=== PATIENT | male | born 1995 | race Caucasian/White ===

== ENCOUNTER 2017-05-11 04:42 | Emergency (ER) | payer SELFPAY ==
[2017-05-11] MEDS ORDERED: NORMAL SALINE 1000 ML 1,000 ML IV ONE ×3 (05:03→06:15)
[2017-05-11] MEDS ORDERED: ACETAMINOPHEN 325 MG TABLET ONE (05:18)
[2017-05-11] MEDS ORDERED: ACETAMINOPHEN 325 MG TABLET PO ONE (05:21)
[2017-05-11 05:39] LABS: VENOUS BLOOD BASE EXCESS 3.9 mmol/L; VENOUS BLOOD HCO3 29.7 mmol/L (20-32); VENOUS BLOOD PCO2 49.1 mmHg (35-63); VENOUS BLOOD PH 7.4 (7.30-7.42)
[2017-05-11 05:40] LABS: PROTHROMBIN TIME 14.2 SEC (11.4-15.4)
[2017-05-11 05:44] LABS: ABSOLUTE EOSINOPHILS # (AUTO) 0.1 10^3/uL (0.0-0.6); ABSOLUTE LYMPHOCYTES (AUTO) 1.4 10^3/uL (0.5-4.7); ABSOLUTE MONOCYTES (AUTO) 1.5 10^3/uL (0.1-1.4); ABSOLUTE NEUT (AUTO) 9.7 10^3/uL (1.7-8.2); BASOPHILS % (AUTO) 0.3 % (0-2); HEMATOCRIT 45.4 % (37.9-51.0); HEMOGLOBIN 15.2 g/dL (13.5-17.0); HGB HCT DIFFERENCE 0.2; MEAN CORPUSCULAR HEMOGLOBIN 29.3 pg (27.0-33.4); MEAN CORPUSCULAR HGB CONC 33.6 g/dL (32.0-36.0); MEAN CORPUSCULAR VOLUME 87 fl (80-97); RED BLOOD COUNT 5.19 10^6/uL (4.35-5.55); RED CELL DISTRIBUTION WIDTH 14.6 % (11.5-14.0); SEGMENTED NEUTROPHILS % (AUTO) 75.7 % (42-78); WHITE BLOOD COUNT 12.9 10^3/uL (4.0-10.5)
--- NOTE | 2017-05-11 05:47 | RADIOLOGY REPORT (SQ) ---
EXAM DESCRIPTION: CHEST PA/LAT COMPLETED DATE/TIME: 05/11/2017 5:38 am REASON FOR STUDY: FEVER COMPARISON: None. EXAM PARAMETERS: NUMBER OF VIEWS: two views TECHNIQUE: Digital Frontal and Lateral radiographic views of the chest acquired. RADIATION DOSE: NA LIMITATIONS: none FINDINGS: LUNGS AND PLEURA: No opacities, masses or pneumothorax. No pleural effusion. MEDIASTINUM AND HILAR STRUCTURES: No masses or contour abnormalities. HEART AND VASCULAR STRUCTURES: Heart normal size. No evidence for failure. BONES: No acute findings. HARDWARE: None in the chest. OTHER: No other significant finding. IMPRESSION: NO SIGNIFICANT RADIOGRAPHIC FINDING IN THE CHEST. TECHNICAL DOCUMENTATION: JOB ID: [id number] [employer]- All Rights Reserved
[2017-05-11 05:55] LABS: ALANINE AMINOTRANSFERASE 40 U/L (21-72); ALKALINE PHOSPHATASE 128 U/L (38-126); ANION GAP 13 (5-19); ASPARTATE AMINO TRANSFERASE 27 U/L (17-59); BILIRUBIN,DIRECT 0.3 mg/dL (0.0-0.4); BILIRUBIN,TOTAL 0.8 mg/dL (0.2-1.3); BLOOD UREA NITROGEN 14 mg/dL (7-20); CALCIUM 9.7 mg/dL (8.4-10.2); CARBON DIOXIDE 28 mmol/L (22-30); CHLORIDE 98 mmol/L (98-107); CREATININE RESULT 0.86 mg/dL (0.52-1.25); GLUCOSE 101 mg/dL (75-110); POTASSIUM 3.6 mmol/L (3.6-5.0); SODIUM 139.4 mmol/L (137-145); TOTAL PROTEIN 9.1 g/dL (6.3-8.2)
[2017-05-11 06:07] LABS: APPEARANCE,URINE CLEAR; BILIRUBIN,URINE NEGATIVE (NEGATIVE); GLUCOSE, URINE NEGATIVE (NEGATIVE); KETONES,URINE NEGATIVE (NEGATIVE); LEUKOCYTE ESTERASE,URINE NEGATIVE (NEGATIVE); NITRITE,URINE NEGATIVE (NEGATIVE); PROTEIN,URINE NEGATIVE (NEGATIVE); URINE SPECIFIC GRAVITY 1.012; UROBILINOGEN,URINE NEGATIVE mg/dL (<2.0)
[2017-05-11] MEDS ORDERED: LORAZEPAM INJ 2 MG/1 ML VIAL IV ONE (06:29)
[2017-05-11 06:45] LABS: URINE BARBITURATES SCREEN NEGATIVE; URINE METHADONE SCREEN NEGATIVE; URINE OPIATES LOW NEGATIVE; URINE PHENCYCLIDINE SCREEN NEGATIVE
[2017-05-11 06:59] LABS: CREATINE KINASE 106 U/L (55-170); LIPASE 51.6 U/L (23-300)
[2017-05-11 07:04] LABS: ALCOHOL < 10 mg/dL (NONE DETECTED)
[2017-05-11 07:12] LABS: CREATINE KINASE MB 0.72 ng/mL (<4.55)
[2017-05-11 07:15] LABS: TROPONIN I < 0.012 ng/mL
[2017-05-11 07:28] LABS: THYROID STIMULATING HORMONE 5.78 uIU/mL (0.47-4.68)
--- NOTE | 2017-05-11 08:34 | ER Document Report ---
ED General - General Chief Complaint: Headache Stated Complaint: BODY ACHES Time Seen by Provider: 05/11/17 06:15 - HPI Patient complains to provider of: Fever Notes: Patient coming in for evaluation of diffuse myalgias and fever. States symptoms ongoing for last few days. Patient denies any recent travel denies any recent sick contacts. Patient also states he does have a headache. No other neurologic complaints no dizziness no lightheadedness no numbness no tingling no abdominal pain chest pain no nausea vomiting diarrhea. No recent antibiotics. - Related Data Allergies/Adverse Reactions: No Known Allergies Allergy (Verified 05/11/17 05:32) Past Medical History - Social History Smoking Status: Unknown if Ever Smoked Family History: Reviewed & Not Pertinent Patient has suicidal ideation: No Patient has homicidal ideation: No Renal/ Medical History: Denies: Hx Peritoneal Dialysis Surgical Hx: Negative Review of Systems - Review of Systems Constitutional: Fever EENT: No symptoms reported Cardiovascular: No symptoms reported Respiratory: No symptoms reported Gastrointestinal: No symptoms reported Genitourinary: No symptoms reported Male Genitourinary: No symptoms reported Musculoskeletal: No symptoms reported Skin: No symptoms reported Hematologic/Lymphatic: No symptoms reported Neurological/Psychological: No symptoms reported -: Yes All other systems reviewed and negative Physical Exam - Vital signs Vitals: Temp Pulse Resp BP Pulse Ox 99.6 F 131 H 18 152/89 H 99 05/11/17 04:46 05/11/17 04:46 05/11/17 04:46 05/11/17 04:46 05/11/17 04:46 Interpretation: Tachycardic - General General appearance: Appears well, Alert - HEENT Head: Normocephalic, Atraumatic Eyes: Normal Pupils: PERRL - Respiratory Respiratory status: No respiratory distress Chest status: Nontender Breath sounds: Normal Chest palpation: Normal - Cardiovascular Rhythm: Tachycardia Heart sounds: Normal auscultation Murmur: No - Abdominal Inspection: Normal Distension: No distension Bowel sounds: Normal Tenderness: Nontender Organomegaly: No organomegaly - Back Back: Normal, Nontender - Extremities General upper extremity: Normal inspection, Nontender, Normal color, Normal ROM , Normal temperature General lower extremity: Normal inspection, Nontender, Normal color, Normal ROM , Normal temperature, Normal weight bearing. No: Loree's sign - Neurological Neuro grossly intact: Yes Cognition: Normal Orientation: AAOx4 [place] Coma Scale Eye Opening: Spontaneous [place] Coma Scale Verbal: Oriented [place] Coma Scale Motor: Obeys Commands [place] Coma Scale Total: 15 Speech: Normal Motor strength normal: LUE, RUE, LLE, RLE Sensory: Normal - Psychological Associated symptoms: Normal affect, Normal mood - Skin Skin Temperature: Warm Skin Moisture: Dry Skin Color: Normal Course - Re-evaluation Re-evalutation: 05/11/17 14:14 Lab work is nonspecific slight elevation TSH patient's heart rate improved after a dose of Ativan and IV fluids. Upon entering room patient's heart rate would increase from 90 to-120. More likely this is related to the patient's anxiety. No signs of sepsis or severe infection patient will be discharged on follow-up primary care. Vistaril was given for possible anxiety. - Vital Signs Vital signs: Temp Pulse Resp BP Pulse Ox 97.9 F 131 H 17 134/67 H 99 05/11/17 08:12 05/11/17 04:46 05/11/17 08:31 05/11/17 08:31 05/11/17 08:31 - Laboratory Result Diagrams: 05/11/17 05:12 05/11/17 05:12 Laboratory results interpreted by me: 05/11/17 05/11/17 05/11/17 05:12 05:12 05:12 WBC 12.9 H RDW 14.6 H Lymphocytes % 11.0 L Absolute Neutrophils 9.7 H Absolute Monocytes 1.5 H Alkaline Phosphatase 128 H Total Protein 9.1 H TSH 5.78 H Discharge - Discharge Clinical Impression: Dehydration Fever Qualifiers: Fever type: unspecified Qualified Code(s): R50.9 - Fever, unspecified Condition: Good Disposition: HOME, SELF-CARE Instructions: Sinus Tachycardia ([facility]), Fever ([facility]), Anxiety ([facility]), Dehydration ([facility]) Additional Instructions: At this time your workup does not show any significant signs of infection your heart rate has improved with IV hydration. We recommend that she continue to drink plenty of fluids to stay hydrated. Possibility that she may have some underlying anxiety. He may take the Vistaril prescribed at nighttime to possibly help out with any underlying anxiety. Otherwise highly recommend she drink plenty of water or Gatorade to stay hydrated. Tylenol Motrin for fever and pain control. Return to the ER symptoms worsen. He may follow-up the clinic provided you discharge papers. Prescriptions: Hydroxyzine Pamoate [Vistaril 25 mg Capsule] 25 mg PO QHS #20 capsule
[2017-05-11 08:55] VITALS: BP 134/67
--- NOTE | 2017-05-11 12:03 | EKG REPORT ---
SEVERITY:- ABNORMAL ECG - SINUS TACHYCARDIA PROBABLE LEFT ATRIAL ABNORMALITY PROBABLE LEFT VENTRICULAR HYPERTROPHY ST ELEV, PROBABLE NORMAL EARLY REPOL PATTERN : Confirmed by: Benita Blackburn MD 11-May-2017 12:02:37
== END 2017-05-11 08:55 | disposition home or self-care (01) ==
LOC: ER 04:42
DX: E86.0 Dehydration (principal); R50.9 Fever, unspecified; R51 Headache; R52 Pain, unspecified; M79.1 Myalgia
CPT/HCPCS: 93005; 99284; 96374; 36415; 87040; 87086; 84439; 82553; 82962; 80307 ×2; 82550; 83690; 84443; 85025; 85610; 80053; 81001; 84484; 85379; 82803; 83605; 87804; 71020; 93010; J2060; J7030

== ENCOUNTER 2017-05-13 06:39 | Emergency (ER) | payer SELFPAY ==
--- NOTE | 2017-05-13 07:22 | ER Document Report ---
ED Respiratory Problem - General Chief Complaint: Cough Stated Complaint: COUGHING UP BLOOD Time Seen by Provider: 05/13/17 07:21 Mode of Arrival: Ambulatory Information source: Patient Notes: Patient is a 22-year-old male who presents to the ER today for coughing up blood 1 day. Patient states that he started feeling ill a few days ago, came to the emergency department, everything was normal at that time, but his cough has worsened. He denies any history of asthma or lung diseases, HIV, tuberculosis. He admits to some fever and chills but has not taken his temperature. He has never coughed up blood before. TRAVEL OUTSIDE OF THE [place] IN LAST 30 DAYS: No - Related Data Allergies/Adverse Reactions: No Known Allergies Allergy (Verified 05/13/17 07:30) Past Medical History - General Information source: Patient - Social History Smoking Status: Never Smoker Family History: Reviewed & Not Pertinent Patient has suicidal ideation: No Patient has homicidal ideation: No Renal/ Medical History: Denies: Hx Peritoneal Dialysis Review of Systems - Review of Systems Constitutional: See HPI EENT: No symptoms reported Cardiovascular: No symptoms reported Respiratory: See HPI Gastrointestinal: No symptoms reported Genitourinary: No symptoms reported Male Genitourinary: No symptoms reported Musculoskeletal: No symptoms reported Skin: No symptoms reported Hematologic/Lymphatic: No symptoms reported Neurological/Psychological: No symptoms reported Physical Exam - Vital signs Vitals: Temp Pulse Resp BP Pulse Ox 98.3 F 114 H 18 152/81 H 100 05/13/17 06:44 05/13/17 06:44 05/13/17 06:44 05/13/17 06:44 05/13/17 06:44 Course - Re-evaluation Re-evalutation: 05/13/17 10:32 Is 11.2, HIV is negative, will treat patient for pneumonia with antibiotics and steroid medication, will give him albuterol inhaler from the emergency department. I have had a lengthy discussion with him advising him that I do believe he should stay in the hospital as he is tachycardic and gets more tachycardic into the 115s whenever he ambulates, however he does not get tachypneic or hypoxic at all, staying around 96% on room air to 100% on room air consistently. I have seen him cough up bright red blood here, approximately 1 ounce. I did highly advise him to stay in the hospital, however patient has a job interview that he states he must get to because he "really needs this job." I did advise that he can come back at any time but did not promise him that he will absolutely be admitted if he leaves now and comes back to be admitted after the job interview. I did advise him that it depends on what his vital signs look like and how much blood he is coughing up, but at this time he is still deciding that he wants to leave to go to this job interview. It sounds like he will be back later on this afternoon after the job interview and wants to be admitted for this. He does not have insurance and states he does not have the money to follow-up outpatient. I have sent him home with the albuterol inhaler and treating him for pneumonia with generic medication. - Vital Signs Vital signs: Temp Pulse Resp BP Pulse Ox 98.3 F 114 H 18 152/81 H 100 05/13/17 06:44 05/13/17 06:44 05/13/17 06:44 05/13/17 06:44 05/13/17 06:44 - Laboratory Result Diagrams: 05/13/17 08:45 05/13/17 08:45 Laboratory results interpreted by me: 05/13/17 08:45 WBC 11.2 H RBC 4.18 L Hgb 12.6 L D Hct 37.2 L RDW 14.1 H Seg Neutrophils % 81.6 H Lymphocytes % 8.6 L Absolute Neutrophils 9.1 H Discharge - Discharge Clinical Impression: Hemoptysis Pneumonia Qualifiers: Pneumonia type: due to unspecified organism Laterality: bilateral Lung location : unspecified part of lung Qualified Code(s): J18.9 - Pneumonia, unspecified organism Condition: Stable Disposition: HOME, SELF-CARE Additional Instructions: Return immediately for any new or worsening symptoms. Coughing up 1 cup (8oz) of blood in 24 hours is too much and you would need to return to the ER immediately. Follow up with Dr. Kurtz, call today to make followup appointment. Prescriptions: Benzonatate [Tessalon Perle 100 mg Capsule] 100 mg PO Q8HP PRN #14 cap PRN Reason: Doxycycline Hyclate 100 mg PO BID #20 capsule Prednisone [Deltasone 20 mg Tablet] 3 tab PO DAILY 8 Days
--- NOTE | 2017-05-13 07:54 | RADIOLOGY REPORT (SQ) ---
EXAM DESCRIPTION: CHEST PA/LAT COMPLETED DATE/TIME: 05/13/2017 7:39 am REASON FOR STUDY: cough COMPARISON: 05/11/2017. EXAM PARAMETERS: NUMBER OF VIEWS: two views TECHNIQUE: Digital Frontal and Lateral radiographic views of the chest acquired. RADIATION DOSE: NA LIMITATIONS: none FINDINGS: LUNGS AND PLEURA: Diffuse bilateral infiltrates. No pleural effusion. No pneumothorax. MEDIASTINUM AND HILAR STRUCTURES: No masses or contour abnormalities. HEART AND VASCULAR STRUCTURES: Heart normal size. No evidence for failure. BONES: No acute findings. HARDWARE: None in the chest. OTHER: No other significant finding. IMPRESSION: DIFFUSE BILATERAL INFILTRATES. TECHNICAL DOCUMENTATION: JOB ID: [id number] [employer]- All Rights Reserved
[2017-05-13] MEDS ORDERED: GUAIFENESIN/D-METHORPHAN (200-20 MG) SYRUP 10 ML PO ONE (08:20)
[2017-05-13] MEDS ORDERED: DAPSONE 25 MG TABLET PO ONE (08:27)
[2017-05-13] MEDS ORDERED: SULFAMETHOXAZOLE/TRIMETHOPRIM 800-160 MG TABLET PO ONE (08:27)
[2017-05-13 09:03] LABS: ABSOLUTE EOSINOPHILS # (AUTO) 0.1 10^3/uL (0.0-0.6); ABSOLUTE NEUT (AUTO) 9.1 10^3/uL (1.7-8.2); BASOPHILS % (AUTO) 0.2 % (0-2); EOSINOPHILS % (AUTO) 0.7 % (0-6); HEMATOCRIT 37.2 % (37.9-51.0); HGB HCT DIFFERENCE 0.6; LYMPHOCYTES % (AUTO) 8.6 % (13-45); MEAN CORPUSCULAR HEMOGLOBIN 30.2 pg (27.0-33.4); MEAN CORPUSCULAR VOLUME 89 fl (80-97); MONOCYTES % (AUTO) 8.9 % (3-13); RED BLOOD COUNT 4.18 10^6/uL (4.35-5.55); RED CELL DISTRIBUTION WIDTH 14.1 % (11.5-14.0); SEGMENTED NEUTROPHILS % (AUTO) 81.6 % (42-78); WHITE BLOOD COUNT 11.2 10^3/uL (4.0-10.5)
[2017-05-13 09:16] LABS: ALANINE AMINOTRANSFERASE 28 U/L (21-72); ALBUMIN 4.4 g/dL (3.5-5.0); ALKALINE PHOSPHATASE 111 U/L (38-126); ANION GAP 13 (5-19); ASPARTATE AMINO TRANSFERASE 21 U/L (17-59); BILIRUBIN,DIRECT 0.4 mg/dL (0.0-0.4); BILIRUBIN,TOTAL 0.6 mg/dL (0.2-1.3); BLOOD UREA NITROGEN 12 mg/dL (7-20); CALCIUM 9.1 mg/dL (8.4-10.2); CARBON DIOXIDE 25 mmol/L (22-30); CHLORIDE 103 mmol/L (98-107); CREATININE RESULT 0.79 mg/dL (0.52-1.25); GLUCOSE 96 mg/dL (75-110); POTASSIUM 3.8 mmol/L (3.6-5.0); SODIUM 141.1 mmol/L (137-145); TOTAL PROTEIN 7.7 g/dL (6.3-8.2)
[2017-05-13 09:29] LABS: HEMOGLOBIN 12.6 g/dL (13.5-17.0)
--- NOTE | 2017-05-13 09:47 | RADIOLOGY REPORT (SQ) ---
EXAM DESCRIPTION: CTA CHEST COMPLETED DATE/TIME: 05/13/2017 9:27 am REASON FOR STUDY: diffuse infiltrated, hemoptysis COMPARISON: Chest x-ray dated 05/13/2017 TECHNIQUE: CT scan of the chest performed using helical scanning technique with dynamic intravenous contrast injection. Images reviewed with lung, soft tissue and bone windows. Reconstructed coronal and sagittal MPR images reviewed. Additional 3 dimensional post-processing performed to develop Maximal Intensity Projection images (AR P). All images stored on PACS. All CT scanners at this facility use dose modulation, iterative reconstruction, and/or weight based d osing when appropriate to reduce radiation dose to as low as reasonably achievable (ALARA). [facility]: Dose Right [facility]: CareDose [facility]: Dose Right [facility]: Teradose 4D [facility]: [place] CONTRAST TYPE AND DOSE: contrast/concentration: Isovue 370.00 mg/ml; Total Contrast Delivered: 70.0 ml; Total Saline Delivered: 80.0 ml RENAL FUNCTION: None required. The patient is less than 50 years old. RADIATION DOSE: Up-to-date CT equipment and radiation dose reduction techniques were employed. CTDIv ol: 15.9 - 16.5 mGy. DLP: 707 mGy-cm. . LIMITATIONS: None. FINDINGS: LUNGS AND PLEURA: Diffuse bilateral patchy airspace densities are identified which are mos t confluent in the perihilar regions. No pleural effusions are identified. No pneumothorax is seen AORTA AND GREAT VESSELS: No aneurysm or dissection. HEART: No pericardial effusion. PULMONARY ARTERIES: No emboli visualized in the main pulmonary arteries or the segmental branches. HILAR AND MEDIASTINAL STRUCTURES: No identified masses or abnormal nodes. HARDWARE: None in the chest. UPPER ABDOMEN: No significant findings. Limited exam. THYROID AND OTHER SOFT TISSUES: No masses. No adenopathy. BONES: No acute or significant finding. 3D MIPS: Confirm above findings. OTHER: No other significant finding. IMPRESSION: No evidence for pulmonary embolic disease. Diffuse bilateral patchy airspace densities as noted above most consistent with a pneumonic infiltrate although the possibility of a pulmonary he morrhage or pulmonary edema cannot be excluded. No pleural effusions are identified. Other findings as noted above TECHNICAL DOCUMENTATION: JOB ID: [id number] Quality ID # [id number]: Final reports with documentation of one or more dose reduction techniques (e.g., Au tomated exposure control, adjustment of the mA and/or kV according to patient size, use of iterative reconstruction technique) 2010 [employer]- All Rights Reserved
[2017-05-13] MEDS ORDERED: IPRATROPIUM/ALBUTEROL 0.5-2.5 MG/3 ML AMPUL NEB ONE (09:53)
[2017-05-13 09:57] LABS: ADD HIVPANEL? NO; HIV (1 AND 2) ANTIBODY NEGATIVE (NEGATIVE)
[2017-05-13] MEDS ORDERED: ALBUTEROL SULFATE HFA (90 MCG/PUFF) 8 GM MDI (1 MDI/ER DISP) IH ONE (10:37)
[2017-05-13] MEDS ORDERED: PREDNISONE 20 MG TABLET PO ONE (10:37)
[2017-05-13 11:08] VITALS: BP 151/87
== END 2017-05-13 11:00 | disposition home or self-care (01) ==
LOC: ER 06:39
DX: R04.2 Hemoptysis (principal); J18.9 Pneumonia, unspecified organism
CPT/HCPCS: 94640; 99284; 36415; 87040; 87070; 87205; 85025; 80053; 86701; 83880; 71020; 71275; J3490 ×3; J7512; J7620

== ENCOUNTER 2017-05-15 10:58 | Inpatient (IN) | payer SELFPAY ==
--- NOTE | 2017-05-15 11:51 | ER Document Report ---
ED Medical Screen (RME) - General Chief Complaint: Breathing Difficulty Stated Complaint: DIFFICULTY BREATHING, COUGH Time Seen by Provider: 05/15/17 11:45 Mode of Arrival: Ambulatory Information source: Patient Notes: This is a 22-year-old man with a recent diagnosis of pneumonia presents to the emergency room with worsening hemoptysis and worsening shortness of breath. Patient was placed on steroids, doxycycline, and an inhaler. He did have a CTA recently which showed no evidence of pulmonary emboli and a diffuse pneumonic process. TRAVEL OUTSIDE OF THE [place] IN LAST 30 DAYS: No - Related Data Allergies/Adverse Reactions: No Known Allergies Allergy (Verified 05/13/17 07:30) Past Medical History - Social History Chew tobacco use (# tins/day): No Frequency of alcohol use: None Drug Abuse: None Renal/ Medical History: Denies: Hx Peritoneal Dialysis Psychiatric Medical History: Reports: Hx Depression - anxiety Physical Exam - Vital signs Vitals: Temp Pulse Resp BP Pulse Ox 98.8 F 99 16 147/84 H 96 05/15/17 11:03 05/15/17 11:03 05/15/17 11:03 05/15/17 11:03 05/15/17 11:03 Course - Vital Signs Vital signs: Temp Pulse Resp BP Pulse Ox 98.8 F 99 18 147/84 H 96 05/15/17 11:03 05/15/17 11:03 05/15/17 11:38 05/15/17 11:03 05/15/17 11:03
[2017-05-15] MEDS ORDERED: IPRATROPIUM/ALBUTEROL 0.5-2.5 MG/3 ML AMPUL NEB ONE (11:52)
--- NOTE | 2017-05-15 12:07 | RADIOLOGY REPORT (SQ) ---
EXAM DESCRIPTION: CHEST PA/LAT COMPLETED DATE/TIME: 05/15/2017 11:57 am REASON FOR STUDY: worsening sob COMPARISON: 05/13/2017. EXAM PARAMETERS: NUMBER OF VIEWS: two views TECHNIQUE: Digital Frontal and Lateral radiographic views of the chest acquired. RADIATION DOSE: NA LIMITATIONS: none FINDINGS: LUNGS AND PLEURA: Slight worsening multifocal airspace disease. Pleural spaces clear. MEDIASTINUM AND HILAR STRUCTURES: No masses or contour abnormalities. HEART AND VASCULAR STRUCTURES: Heart normal size. No evidence for failure. BONES: No acute findings. HARDWARE: None in the chest. OTHER: No other significant finding. IMPRESSION: SLIGHT WORSENING MULTIFOCAL AIRSPACE DISEASE. TECHNICAL DOCUMENTATION: JOB ID: [id number] [employer]- All Rights Reserved
[2017-05-15 12:13] LABS: ABSOLUTE LYMPHOCYTES (AUTO) 1.1 10^3/uL (0.5-4.7); ABSOLUTE MONOCYTES (AUTO) 0.5 10^3/uL (0.1-1.4); ABSOLUTE NEUT (AUTO) 9.5 10^3/uL (1.7-8.2); BASOPHILS % (AUTO) 0.1 % (0-2); EOSINOPHILS % (AUTO) 0.1 % (0-6); HEMATOCRIT 34.3 % (37.9-51.0); HEMOGLOBIN 11.5 g/dL (13.5-17.0); HGB HCT DIFFERENCE 0.2; LYMPHOCYTES % (AUTO) 9.8 % (13-45); MEAN CORPUSCULAR HEMOGLOBIN 29.7 pg (27.0-33.4); MEAN CORPUSCULAR HGB CONC 33.6 g/dL (32.0-36.0); MEAN CORPUSCULAR VOLUME 88 fl (80-97); MONOCYTES % (AUTO) 4.9 % (3-13); RED BLOOD COUNT 3.88 10^6/uL (4.35-5.55); RED CELL DISTRIBUTION WIDTH 13.5 % (11.5-14.0); SEGMENTED NEUTROPHILS % (AUTO) 85.1 % (42-78); WHITE BLOOD COUNT 11.2 10^3/uL (4.0-10.5)
--- NOTE | 2017-05-15 12:22 | ER Document Report ---
ED Respiratory Problem - General Mode of Arrival: Ambulatory Information source: Patient TRAVEL OUTSIDE OF THE [place] IN LAST 30 DAYS: No - HPI Patient complains to provider of: Short of breath Associated symptoms: Other - see above <OMAIRA GIVENS - Last Filed: 05/15/17 14:15> <PABLO HERNANDEZ - Last Filed: 05/15/17 14:24> - General Chief Complaint: Breathing Difficulty Stated Complaint: DIFFICULTY BREATHING, COUGH Time Seen by Provider: 05/15/17 11:45 Notes: Patient is a 22 year old male who presents to the ED with complaints of worsening difficulty breathing, cough and hemoptysis. Patient was seen in the ED on 05/13/17 and diagnosed with pneumonia and was placed on steroids, doxycycline and an inhaler. They also did HIV and Influenza testing at that time and both were negative. Admission at that time was strongly recommended but patient declined as he had a job interview to attend that he could not miss. PAtient was also here on 05/11/17 for generalized body aches, fever and headache and was found to be dehydrated. Patient is unsure if he has been running a fever but he has had chills. (OMAIRA GIVENS) - Related Data Allergies/Adverse Reactions: No Known Allergies Allergy (Verified 05/13/17 07:30) Past Medical History - General Information source: Patient - Social History Smoking Status: Never Smoker Chew tobacco use (# tins/day): No Frequency of alcohol use: None Drug Abuse: None Family History: Reviewed & Not Pertinent Patient has suicidal ideation: No Patient has homicidal ideation: No Renal/ Medical History: Denies: Hx Peritoneal Dialysis Psychiatric Medical History: Reports: Hx Depression - anxiety <OMAIRA GIVENS - Last Filed: 05/15/17 14:15> Review of Systems - Review of Systems Constitutional: See HPI, Chills EENT: No symptoms reported Cardiovascular: No symptoms reported Respiratory: See HPI, Cough, Hurts to breathe, Hemoptysis, Short of breath Gastrointestinal: No symptoms reported Genitourinary: No symptoms reported Male Genitourinary: No symptoms reported Musculoskeletal: No symptoms reported Skin: No symptoms reported Hematologic/Lymphatic: No symptoms reported Neurological/Psychological: No symptoms reported <OMAIRA GIVENS - Last Filed: 05/15/17 14:15> Physical Exam - General General appearance: Alert - HEENT Head: Normocephalic, Atraumatic Eyes: Normal Extraocular movements intact: Yes Pupils: PERRL - Respiratory Respiratory status: No respiratory distress Breath sounds: Rhonchi. No: Wheezing - Cardiovascular Rhythm: Tachycardia Heart sounds: Normal auscultation Murmur: No - Abdominal Inspection: Normal Distension: No distension Tenderness: Nontender - Back Back: Normal - Extremities General upper extremity: Normal inspection, Normal ROM General lower extremity: Normal inspection, Normal ROM - Neurological Neuro grossly intact: Yes - Psychological Associated symptoms: Normal affect, Normal mood - Skin Skin Temperature: Warm Skin Moisture: Diaphoretic Skin Color: Normal <OMAIRA GIVENS - Last Filed: 05/15/17 14:15> Course - Laboratory Result Diagrams: 05/15/17 11:55 05/15/17 11:55 - Consults Dr. Lamb Time consulted: 14:12 Dr. Collins Time consulted: 14:05 <OMAIRA GIVENS - Last Filed: 05/15/17 14:15> - Laboratory Result Diagrams: 05/15/17 11:55 05/15/17 11:55 <PABLO HERNANDEZ - Last Filed: 05/15/17 14:24> - Vital Signs Vital signs: Temp Pulse Resp BP Pulse Ox 98.8 F 99 18 147/84 H 96 05/15/17 11:03 05/15/17 11:03 05/15/17 11:38 05/15/17 11:03 05/15/17 11:03 - Laboratory Laboratory results interpreted by me: 05/15/17 11:55 WBC 11.2 H RBC 3.88 L Hgb 11.5 L Hct 34.3 L Seg Neutrophils % 85.1 H Lymphocytes % 9.8 L Absolute Neutrophils 9.5 H - Consults Dr. Lamb Reason for consultation: 05/15/17 14:12 Discussed patient. Patient is accepted for admission. (OMAIRA GIVENS) Dr. Collins Reason for consultation: 05/15/17 14:05 Discussed patient. He recommended to consult with Dr. Lamb. (OMAIRA GIVENS) Discharge <OMAIRA GIVENS - Last Filed: 05/15/17 14:15> - Discharge Admitting Provider: Hospitalist Unit Admitted: Telemetry <PABLO HERNANDEZ - Last Filed: 05/15/17 14:24> - Discharge Clinical Impression: Bilateral pulmonary infiltrates on chest x-ray, Hemoptysis, Acute posthemorrhagic anemia Condition: Stable Disposition: ADMITTED INPATIENT Scribe Attestation: 05/15/17 14:24 I personally performed the services described in the documentation, reviewed and edited the documentation which was dictated to the scribe in my presence, and it accurately records my words and actions. (PABLO HERNANDEZ) Scribe Documentation - Scribe Written by Felicia:: felicia Sanchez, 05/15/2017, 1227 acting as scribe for :: Vivian <OMAIRA GIVENS - Last Filed: 05/15/17 14:15>
[2017-05-15 12:23] LABS: PROTHROMBIN TIME 13.8 SEC (11.4-15.4)
[2017-05-15] MEDS ORDERED: NORMAL SALINE 1000 ML 1,000 ML IV ONE (12:23)
[2017-05-15 12:33] LABS: ALANINE AMINOTRANSFERASE 45 U/L (21-72); ALBUMIN 4.5 g/dL (3.5-5.0); ALKALINE PHOSPHATASE 101 U/L (38-126); ANION GAP 13 (5-19); ASPARTATE AMINO TRANSFERASE 33 U/L (17-59); BILIRUBIN,DIRECT 0.4 mg/dL (0.0-0.4); BILIRUBIN,TOTAL 0.9 mg/dL (0.2-1.3); BLOOD UREA NITROGEN 13 mg/dL (7-20); CALCIUM 9.4 mg/dL (8.4-10.2); CARBON DIOXIDE 24 mmol/L (22-30); CHLORIDE 102 mmol/L (98-107); CREATININE RESULT 0.74 mg/dL (0.52-1.25); GLUCOSE 99 mg/dL (75-110); POTASSIUM 4.4 mmol/L (3.6-5.0); SODIUM 139.3 mmol/L (137-145); TOTAL PROTEIN 7.9 g/dL (6.3-8.2)
[2017-05-15 14:54] LABS: APPEARANCE,URINE SLIGHTLY-CLOUDY; BILIRUBIN,URINE NEGATIVE (NEGATIVE); GLUCOSE, URINE NEGATIVE (NEGATIVE); KETONES,URINE NEGATIVE (NEGATIVE); LEUKOCYTE ESTERASE,URINE NEGATIVE (NEGATIVE); NITRITE,URINE NEGATIVE (NEGATIVE); PROTEIN,URINE NEGATIVE (NEGATIVE); UROBILINOGEN,URINE NEGATIVE mg/dL (<2.0)
[2017-05-15] MEDS ORDERED: IPRATROPIUM/ALBUTEROL 0.5-2.5 MG/3 ML AMPUL NEB PRN (15:23)
[2017-05-15] MEDS ORDERED: ACETAMINOPHEN 325 MG TABLET PO PRN (15:23)
--- NOTE | 2017-05-15 15:53 | PDOC H&P ---
History of Present Illness History of Present Illness: This is a 22-year-old white male with no significant past medical history who presents to the service with complaints of coughing up blood. The patient initially presented here back on May 11. At that time he complained of myalgias, fevers, headache. He presented to the ED he was noted to have an elevated heart rate. Chest x-ray was done which was normal. He was discharged home. Patient returned on May 13 with complaints of shortness of breath especially when walking. CTA of the chest abdomen was negative for PE but showed infiltrate versus hemorrhage or pulmonary edema. The patient was placed on steroids, doxycycline and inhalers. At that time it was noted that his hemoglobin which was 15 on his initial visit had now dropped down to 12. The patient was invited to stay in the hospital however, he respectfully declined citing that he had a job interview coming up and he wanted to be present for that. On May 15 the patient will be presented with continued hemoptysis. This time in the ED it was noted that his hemoglobin had dropped down to 11. Flu and HIV screens from previous ER visit came back negative. In my conversation with the patient, he states that he has been coughing up blood over the last several days. He states that he coughed up maybe about 6 tablespoons. He describes it as bright red blood and at other times the blood appears to be old. He admits to black tarry stools starting yesterday. He admits to fevers, chills, chest discomfort with deep breathing and dyspnea on exertion. He denies any nausea vomiting, diarrhea constipation, blood in the urine, throwing up blood, cold or heat intolerance. He does occasionally have dizzy spells since all of this began. 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 He says there are few sick people at work. He also admits to having diffuse myalgia and arthralgias when this first began. However, this is dissipated. He has had no recent travel outside the country and does not live in the community setting such as skilled nursing, dormitory, correction. Past Medical History Medical History: None Past Surgical History Past Surgical History: Reports: None Social History Information Source: Patient Smoking Status: Never Smoker Frequency of Alcohol Use: Occasional Drugs: Marijuana - Advance Directive Resuscitation Status: Full Code Family History Family History: Hypertension Parental Family History Reviewed: Yes Children Family History Reviewed: Yes Sibling(s) Family History Reviewed.: Yes Medication/Allergy Home Medications: Benzonatate [Tessalon Perles 100 mg Capsule] 100 mg PO Q8 05/15/17 Doxycycline Hyclate [Vibramycin 100 mg Tablet] 100 mg PO BID 05/15/17 Prednisone [Deltasone 20 mg Tablet] 60 mg PO DAILY 05/15/17 Allergies/Adverse Reactions: No Known Allergies Allergy (Verified 05/13/17 07:30) Review of Systems Review of Systems: Review of systems is positive as per HPI. Otherwise, 10 point review review of systems was performed and is otherwise negative. Physical Exam Vital Signs: Temp Pulse Resp BP Pulse Ox 98.8 F 99 18 147/84 H 96 05/15/17 11:03 05/15/17 11:03 05/15/17 11:38 05/15/17 11:03 05/15/17 11:03 Intake & Output 05/14/17 05/15/17 05/16/17 06:59 06:59 06:59 Weight 77.111 kg GENERAL: This is a well-developed well-nourished appearing white male resting in bed currently in no acute distress. HEART: Regular rate and rhythm. No murmurs, rubs or gallops. LUNGS: Clear to auscultation bilaterally with equal rise and fall of the chest. ABDOMEN: Soft, nontender, nondistended with normoactive bowel sounds EXTREMETIES: No clubbing, cyanosis or edema. 2+ peripheral pulses bilaterally. NEURO: Awake, alert and oriented 3. Cranial nerves II through XII are grossly intact. Results Laboratory Results: 05/15/17 11:55 05/15/17 11:55 05/15/17 05/15/17 05/15/17 11:55 11:55 14:27 WBC 11.2 H RBC 3.88 L Hgb 11.5 L Hct 34.3 L MCV 88 MCH 29.7 MCHC 33.6 RDW 13.5 Plt Count 269 Seg Neutrophils % 85.1 H Lymphocytes % 9.8 L Monocytes % 4.9 Eosinophils % 0.1 Basophils % 0.1 Absolute Neutrophils 9.5 H Absolute Lymphocytes 1.1 Absolute Monocytes 0.5 Absolute Eosinophils 0.0 Absolute Basophils 0.0 Sodium 139.3 Potassium 4.4 Chloride 102 Carbon Dioxide 24 Anion Gap 13 BUN 13 Creatinine 0.74 Est GFR ( Amer) > 60 Est GFR (Non-Af Amer) > 60 Glucose 99 Calcium 9.4 Total Bilirubin 0.9 AST 33 ALT 45 Alkaline Phosphatase 101 Total Protein 7.9 Albumin 4.5 Urine Color YELLOW Urine Appearance SLIGHTLY-CLOUDY Urine pH 8.0 Ur Specific [place] 1.010 Urine Protein NEGATIVE Urine Glucose (UA) NEGATIVE Urine Ketones NEGATIVE Urine Blood SMALL H Urine Nitrite NEGATIVE Ur Leukocyte Esterase NEGATIVE Urine WBC (Auto) 2 Urine RBC (Auto) 1 Impressions: Chest X-Ray 05/15/17 11:50 IMPRESSION: SLIGHT WORSENING MULTIFOCAL AIRSPACE DISEASE. Assessment & Plan - Diagnosis (1) Hemoptysis Plan: The patient has evidence of bilateral diffuse infiltrate seen on chest x-ray and CT scan of the chest. No PE was evident. Pneumonia versus pulmonary hemorrhage was seen. Patient will be admitted to the hospital. We will consult pulmonary. Likely need bronchoscopy. consider etiologies such as Chuck's granulomatosis. (2) Acute blood loss anemia Plan: Patient is down by about 4 g. We will continue to monitor. Slight dizziness. He if he needs transfusion ultimately was found from the OB floor. (3) Pneumonia Qualifiers: Pneumonia type: due to unspecified organism Laterality: bilateral Lung location: unspecified part of lung Qualified Code(s): J18.9 - Pneumonia, unspecified organism Plan: Continue current medication including antibiotics for now. (4) Melena Plan: Patient states the black tarry stools started yesterday. Given that he has hemoptysis and then had he has lost 4 g of blood I suspect that some of his he has swallowed and that is what we are seeing. Will check guaiac of stools. - Time Time Spent: 50 to 70 Minutes Within: within 48 hours - Inpatient Certification Medical Necessity: Need Close Monitoring Due to Risk of Patient Decompensation
[2017-05-15] MEDS ORDERED: TUBERCULIN,PURIF.PROT.DERIV. 5 TU/0.1 ML TEST 1 ML VIAL ID ONE (17:00)
[2017-05-15 17:20] LABS: URINE BARBITURATES SCREEN NEGATIVE; URINE METHADONE SCREEN NEGATIVE; URINE OPIATES LOW NEGATIVE; URINE PHENCYCLIDINE SCREEN NEGATIVE
[2017-05-16 06:05] LABS: ABSOLUTE LYMPHOCYTES (AUTO) 2.9 10^3/uL (0.5-4.7); ABSOLUTE MONOCYTES (AUTO) 1.1 10^3/uL (0.1-1.4); ABSOLUTE NEUT (AUTO) 5.8 10^3/uL (1.7-8.2); BASOPHILS % (AUTO) 0.2 % (0-2); EOSINOPHILS % (AUTO) 0.1 % (0-6); HEMATOCRIT 34.3 % (37.9-51.0); HEMOGLOBIN 11.4 g/dL (13.5-17.0); HGB HCT DIFFERENCE -0.1; LYMPHOCYTES % (AUTO) 29.1 % (13-45); MEAN CORPUSCULAR HEMOGLOBIN 29.8 pg (27.0-33.4); MEAN CORPUSCULAR HGB CONC 33.4 g/dL (32.0-36.0); MEAN CORPUSCULAR VOLUME 89 fl (80-97); MONOCYTES % (AUTO) 11.6 % (3-13); RED BLOOD COUNT 3.84 10^6/uL (4.35-5.55); RED CELL DISTRIBUTION WIDTH 13.9 % (11.5-14.0); WHITE BLOOD COUNT 9.8 10^3/uL (4.0-10.5)
[2017-05-16 06:10] LABS: PROTHROMBIN TIME 14.2 SEC (11.4-15.4)
[2017-05-16 06:11] LABS: PARTIAL THROMBOPLASTIN TIME 28.7 SEC (23.5-35.8)
[2017-05-16 06:23] LABS: ANION GAP 10 (5-19); BLOOD UREA NITROGEN 17 mg/dL (7-20); CALCIUM 9.2 mg/dL (8.4-10.2); CARBON DIOXIDE 27 mmol/L (22-30); CHLORIDE 103 mmol/L (98-107); CREATININE RESULT 0.77 mg/dL (0.52-1.25); GLUCOSE 91 mg/dL (75-110); MAGNESIUM 2.1 mg/dL (1.6-2.3); POTASSIUM 4.1 mmol/L (3.6-5.0); SODIUM 140.3 mmol/L (137-145)
[2017-05-16 08:37] LABS: HEMATOCRIT 34.1 % (37.9-51.0); HEMOGLOBIN 11.4 g/dL (13.5-17.0); HGB HCT DIFFERENCE 0.1; MEAN CORPUSCULAR HEMOGLOBIN 29.9 pg (27.0-33.4); MEAN CORPUSCULAR HGB CONC 33.5 g/dL (32.0-36.0); MEAN CORPUSCULAR VOLUME 89 fl (80-97); RED BLOOD COUNT 3.83 10^6/uL (4.35-5.55); RED CELL DISTRIBUTION WIDTH 13.9 % (11.5-14.0)
[2017-05-16] MEDS ORDERED: TUBERCULIN,PURIF.PROT.DERIV. 5 TU/0.1 ML TEST 1 ML VIAL ID ONE ×2 (09:00→10:00)
[2017-05-16 09:08] LABS: ANION GAP 12 (5-19); BASOPHILS % (MANUAL) 0 % (0-2); BLOOD UREA NITROGEN 17 mg/dL (7-20); CARBON DIOXIDE 25 mmol/L (22-30); CHLORIDE 102 mmol/L (98-107); CREATININE RESULT 0.75 mg/dL (0.52-1.25); EOSINOPHILS % (MANUAL) 0 % (0-6); GLUCOSE 91 mg/dL (75-110); LYMPHOCYTES % (MANUAL) 31 % (13-45); SODIUM 139.1 mmol/L (137-145); TOTAL CELLS COUNTED 100
[2017-05-16 09:15] LABS: OVALOCYTES 1+; POIKILOCYTOSIS 1+; POLYCHROMASIA 1+; TOXIC VACUOLATION PRESENT
[2017-05-16 09:17] LABS: PLATELET CLUMPS PRESENT
--- NOTE | 2017-05-16 12:09 | PDOC CONSULTATION ---
Consultation Consult Date: 05/16/17 Attending physician:: MENDOZA DA SILVA Consult reason:: Hemoptysis History of Present Illness Admission Date/PCP: 05/15/17 15:23 History of Present Illness: This is a 22-year-old white male with no significant past medical history,Other than presenting to the emergency room to 3 days prior to admission complains of cough and shortness of breath was felt that the times that he had a viral pneumonia no antibiotics or other medications were issued. He returned several days later planing cough increasing shortness of breath cough was productive of blood he also states he has some fevers and chills no nausea vomiting no diarrhea but he had several bowel movements that were black and tarry. He denies shortness of breath at rest but admits to some dips and exertion that did not exist prior to these events. He denies history of chronic lung disease as a child or adolescent. He admits to exposure to passive smoke as a child as well as an adult. He denies ever having smoked. He denies recent incarceration. He denies knowledge of being around people who may have had TB in the recent past. He has no occupational exposure to potential respiratory toxins. He has no pets and he denies any recent travel other than to [place]. He admits to occasional tightness in his chest sleeps on 2 pillows rare PND rare nocturnal cough and no edema. He admits to snoring restless sleep unrestful sleep and daytime somnolence. Past Medical History Psychiatric Medical History: Reports: Depression Past Surgical History Past Surgical History: Reports: None Social History Information Source: Patient, [facility] Lives with: Friend Smoking Status: Never Smoker Passive smoke exposure as: Both Frequency of Alcohol Use: Occasional Hx Recreational Drug Use: No Drugs: Marijuana Hx Prescription Drug Abuse: No Do you have pets?: No Have you had any respiratory illnesses as a child?: No Have you been exposed to any sick contacts recently?: No Have you had any recent respiratory illnesses?: No Have you travelled outside of [place] in the past 12 months?: No - Advance Directive Resuscitation Status: Full Code Family History Family History: Hypertension Parental Family History Reviewed: Yes Children Family History Reviewed: Yes Sibling(s) Family History Reviewed.: Yes Medication/Allergy Home Medications: Benzonatate [Tessalon Perles 100 mg Capsule] 100 mg PO Q8 05/15/17 Doxycycline Hyclate [Vibramycin 100 mg Tablet] 100 mg PO BID 05/15/17 Prednisone [Deltasone 20 mg Tablet] 60 mg PO DAILY 05/15/17 Allergies/Adverse Reactions: No Known Allergies Allergy (Verified 05/13/17 07:30) Review of Systems All systems: reviewed and no additional remarkable complaints except as stated Physical Exam Vital Signs: Temp Pulse Resp BP Pulse Ox 97.9 F 79 16 120/61 98 05/16/17 07:44 05/16/17 11:15 05/16/17 11:15 05/16/17 07:44 05/16/17 11:15 Intake & Output 05/15/17 05/16/17 05/17/17 06:59 06:59 06:59 Intake Total 548 Output Total 400 Balance 148 Weight 75.6 kg General appearance: PRESENT: no acute distress, cooperative, disheveled, well- developed, well-nourished Head exam: PRESENT: atraumatic, normocephalic Eye exam: PRESENT: conjunctiva pale, EOMI Mouth exam: PRESENT: moist, neck supple, tongue midline Teeth exam: PRESENT: poor dentation Neck exam: ABSENT: carotid bruit, JVD, lymphadenopathy, thyromegaly Respiratory exam: PRESENT: crackles, decreased breath sounds, rhonchi, symmetrical, unlabored Cardiovascular exam: PRESENT: RRR, +S1, +S2 Pulses: PRESENT: normal radial pulses GI/Abdominal exam: PRESENT: normal bowel sounds, soft. ABSENT: distended, guarding, mass, organolmegaly, rebound, tenderness Rectal exam: PRESENT: deferred Gentrourinary exam: PRESENT: indwelling catheter Musculoskeletal exam: PRESENT: normal inspection Neurological exam: PRESENT: alert, awake Psychiatric exam: PRESENT: normal mood Skin exam: PRESENT: dry, warm Results Laboratory Results: 05/16/17 08:25 05/16/17 08:25 05/16/17 05/16/17 05/16/17 05:35 05:35 08:25 WBC 9.8 9.0 RBC 3.84 L 3.83 L Hgb 11.4 L 11.4 L Hct 34.3 L 34.1 L MCV 89 89 MCH 29.8 29.9 MCHC 33.4 33.5 RDW 13.9 13.9 Plt Count 294 287 Seg Neutrophils % 59.0 Not Reportable Lymphocytes % 29.1 Not Reportable Monocytes % 11.6 Not Reportable Eosinophils % 0.1 Not Reportable Basophils % 0.2 Not Reportable Absolute Neutrophils 5.8 Not Reportable Absolute Lymphocytes 2.9 Not Reportable Absolute Monocytes 1.1 Not Reportable Absolute Eosinophils 0.0 Not Reportable Absolute Basophils 0.0 Not Reportable Sodium 140.3 Potassium 4.1 Chloride 103 Carbon Dioxide 27 Anion Gap 10 BUN 17 Creatinine 0.77 Est GFR ( Amer) > 60 Est GFR (Non-Af Amer) > 60 Glucose 91 Calcium 9.2 Magnesium 2.1 05/16/17 08:25 WBC RBC Hgb Hct MCV MCH MCHC RDW Plt Count Seg Neutrophils % Lymphocytes % Monocytes % Eosinophils % Basophils % Absolute Neutrophils Absolute Lymphocytes Absolute Monocytes Absolute Eosinophils Absolute Basophils Sodium 139.1 Potassium 4.0 Chloride 102 Carbon Dioxide 25 Anion Gap 12 BUN 17 Creatinine 0.75 Est GFR ( Amer) > 60 Est GFR (Non-Af Amer) > 60 Glucose 91 Calcium 9.0 Magnesium 2.0 Impressions: Chest X-Ray 05/15/17 11:50 IMPRESSION: SLIGHT WORSENING MULTIFOCAL AIRSPACE DISEASE. Assessment & Plan - Diagnosis (1) Acute blood loss anemia Is this a current diagnosis for this admission?: YesPlan: As documented by a change in H&H during 2 emergency visits H&H stable at this time will follow closely (2) Bilateral pulmonary infiltrates on chest x-ray Is this a current diagnosis for this admission?: YesPlan: No leukocytosis, no left shift,Currently on Levaquin intravenous (3) Hemoptysis Is this a current diagnosis for this admission?: YesPlan: Awaiting PPD and AFB stains,As stated above no history of incarceration or recent known TB contacts, PT, PTT, INR, platelets all within normal limits (4) Melena Is this a current diagnosis for this admission?: YesPlan: Swallowed blood versus GI bleeding - Plan Summary Plan Summary: Some time patient may need bronchoscopy however probably not tuberculosis it would be the most immediate thing the #1 because of hemoptysis in [facility] is still pneumonia/bronchitis
[2017-05-16] MEDS: LEVOFLOXACIN 750 MG/D5W RTU 750 MG/150 ML RTUPB IV SCH (14:18)
--- NOTE | 2017-05-16 15:16 | PDOC PROGRESS REPORT ---
Subjective Progress Note for:: 05/16/17 Subjective:: This follow-up for hemoptysis. The patient is doing well. There is been no jennifer hemoptysis thus far this morning. He denies any chest discomfort or shortness of breath. Physical Exam Vital Signs: Temp Pulse Resp BP Pulse Ox 98.1 F 79 16 112/66 98 05/16/17 11:00 05/16/17 11:15 05/16/17 11:15 05/16/17 11:00 05/16/17 11:15 Intake & Output 05/15/17 05/16/17 05/17/17 06:59 06:59 06:59 Intake Total 548 840 Output Total 400 850 Balance 148 -10 Weight 75.6 kg GENERAL: This is a well-developed well-nourished appearing white male resting in bed currently in no acute distress. HEART: Regular rate and rhythm. No murmurs, rubs or gallops. LUNGS: Clear to auscultation bilaterally with equal rise and fall of the chest. ABDOMEN: Soft, nontender, nondistended with normoactive bowel sounds EXTREMETIES: No clubbing, cyanosis or edema. 2+ peripheral pulses bilaterally. NEURO: Awake, alert and oriented 3. Cranial nerves II through XII are grossly intact. Results Laboratory Results: 05/16/17 08:25 05/16/17 08:25 05/16/17 05/16/17 05/16/17 05:35 05:35 08:25 WBC 9.8 9.0 RBC 3.84 L 3.83 L Hgb 11.4 L 11.4 L Hct 34.3 L 34.1 L MCV 89 89 MCH 29.8 29.9 MCHC 33.4 33.5 RDW 13.9 13.9 Plt Count 294 287 Seg Neutrophils % 59.0 Not Reportable Lymphocytes % 29.1 Not Reportable Monocytes % 11.6 Not Reportable Eosinophils % 0.1 Not Reportable Basophils % 0.2 Not Reportable Absolute Neutrophils 5.8 Not Reportable Absolute Lymphocytes 2.9 Not Reportable Absolute Monocytes 1.1 Not Reportable Absolute Eosinophils 0.0 Not Reportable Absolute Basophils 0.0 Not Reportable Sodium 140.3 Potassium 4.1 Chloride 103 Carbon Dioxide 27 Anion Gap 10 BUN 17 Creatinine 0.77 Est GFR ( Amer) > 60 Est GFR (Non-Af Amer) > 60 Glucose 91 Calcium 9.2 Magnesium 2.1 05/16/17 08:25 WBC RBC Hgb Hct MCV MCH MCHC RDW Plt Count Seg Neutrophils % Lymphocytes % Monocytes % Eosinophils % Basophils % Absolute Neutrophils Absolute Lymphocytes Absolute Monocytes Absolute Eosinophils Absolute Basophils Sodium 139.1 Potassium 4.0 Chloride 102 Carbon Dioxide 25 Anion Gap 12 BUN 17 Creatinine 0.75 Est GFR ( Amer) > 60 Est GFR (Non-Af Amer) > 60 Glucose 91 Calcium 9.0 Magnesium 2.0 Impressions: Chest X-Ray 05/15/17 11:50 IMPRESSION: SLIGHT WORSENING MULTIFOCAL AIRSPACE DISEASE. Assessment & Plan - Diagnosis (1) Hemoptysis Is this a current diagnosis for this admission?: YesPlan: The patient has evidence of bilateral diffuse infiltrate seen on chest x-ray and CT scan of the chest. No PE was evident. Pneumonia versus pulmonary hemorrhage was seen. Await pulmonary opinion. Likely need bronchoscopy. consider etiologies such as Chuck's granulomatosis. ANCA is pending. No episodes of hemoptysis this morning. (2) Acute blood loss anemia Is this a current diagnosis for this admission?: YesPlan: Patient is down by about 4 g. Hemoglobin remains stable at 11. We will continue to monitor. At this time transfusion is not necessary. (3) Pneumonia Qualifiers: Pneumonia type: due to unspecified organism Laterality: bilateral Lung location: unspecified part of lung Qualified Code(s): J18.9 - Pneumonia, unspecified organism Plan: Continue current medication including antibiotics for now. (4) Melena Is this a current diagnosis for this admission?: YesPlan: Patient states the black tarry stools started yesterday. Given that he has hemoptysis and then had he has lost 4 g of blood I suspect that some of his he has swallowed and that is what we are seeing. Will check guaiac of stools. He has had no bowel movements since admission. - Time Time Spent with patient: 15-24 minutes Anticipated discharge: Home Within: within 48 hours - Inpatient Certification Medical Necessity: Need Close Monitoring Due to Risk of Patient Decompensation
[2017-05-17 06:20] LABS: HEMATOCRIT 35.5 % (37.9-51.0); HEMOGLOBIN 12.2 g/dL (13.5-17.0); HGB HCT DIFFERENCE 1.1; MEAN CORPUSCULAR HEMOGLOBIN 30.5 pg (27.0-33.4); MEAN CORPUSCULAR HGB CONC 34.3 g/dL (32.0-36.0); MEAN CORPUSCULAR VOLUME 89 fl (80-97); RED BLOOD COUNT 3.99 10^6/uL (4.35-5.55); RED CELL DISTRIBUTION WIDTH 13.7 % (11.5-14.0); WHITE BLOOD COUNT 8.8 10^3/uL (4.0-10.5)
[2017-05-17 06:25] LABS: ANION GAP 10 (5-19); BLOOD UREA NITROGEN 21 mg/dL (7-20); CALCIUM 9.5 mg/dL (8.4-10.2); CARBON DIOXIDE 27 mmol/L (22-30); CHLORIDE 101 mmol/L (98-107); CREATININE RESULT 0.75 mg/dL (0.52-1.25); GLUCOSE 68 mg/dL (75-110); MAGNESIUM 2.1 mg/dL (1.6-2.3); POTASSIUM 4.4 mmol/L (3.6-5.0); SODIUM 138.2 mmol/L (137-145)
[2017-05-17 07:02] LABS: BAND NEUTROPHILS % (MANUAL) 2 % (3-5); BASOPHILS % (MANUAL) 0 % (0-2); EOSINOPHILS % (MANUAL) 1 % (0-6); LYMPHOCYTES % (MANUAL) 41 % (13-45); TOTAL CELLS COUNTED 100
[2017-05-17 07:06] LABS: HYPOCHROMASIA SLIGHT; OVALOCYTES SLIGHT; TEAR DROP CELLS SLIGHT
--- NOTE | 2017-05-17 11:23 | PDOC PROGRESS REPORT ---
Subjective Progress Note for:: 05/17/17 Subjective:: reason for visit: f/u pneumonia, hemoptysis hospital course: per other's notes -"This is a 22-year-old white male with no significant past medical history who presents to the service with complaints of coughing up blood. The patient initially presented here back on May 11. At that time he complained of myalgias, fevers, headache. He presented to the ED he was noted to have an elevated heart rate. Chest x-ray was done which was normal. He was discharged home. Patient returned on May 13 with complaints of shortness of breath especially when walking. CTA of the chest abdomen was negative for PE but showed infiltrate versus hemorrhage or pulmonary edema. The patient was placed on steroids, doxycycline and inhalers. At that time it was noted that his hemoglobin which was 15 on his initial visit had now dropped down to 12. The patient was invited to stay in the hospital however, he respectfully declined citing that he had a job interview coming up and he wanted to be present for that. On May 15 the patient will be presented with continued hemoptysis. This time in the ED it was noted that his hemoglobin had dropped down to 11. Flu and HIV screens from previous ER visit came back negative. In my conversation with the patient, he states that he has been coughing up blood over the last several days. He states that he coughed up maybe about 6 tablespoons. He describes it as bright red blood and at other times the blood appears to be old. He admits to black tarry stools starting yesterday. He admits to fevers, chills, chest discomfort with deep breathing and dyspnea on exertion. He denies any nausea vomiting, diarrhea constipation, blood in the urine, throwing up blood, cold or heat intolerance. He does occasionally have dizzy spells since all of this began. 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 He says there are few sick people at work. He also admits to having diffuse myalgia and arthralgias when this first began. However, this is dissipated. He has had no recent travel outside the country and does not live in the community setting such as retirement, dormitory, detention. Other than presenting to the emergency room to 3 days prior to admission complains of cough and shortness of breath was felt that the times that he had a viral pneumonia no antibiotics or other medications were issued. He returned several days later planing cough increasing shortness of breath cough was productive of blood he also states he has some fevers and chills no nausea vomiting no diarrhea but he had several bowel movements that were black and tarry. He denies shortness of breath at rest but admits to some dips and exertion that did not exist prior to these events. He denies history of chronic lung disease as a child or adolescent. He admits to exposure to passive smoke as a child as well as an adult. He denies ever having smoked. He denies recent incarceration. He denies knowledge of being around people who may have had TB in the recent past. He has no occupational exposure to potential respiratory toxins. He has no pets and he denies any recent travel other than to [place]. He admits to occasional tightness in his chest sleeps on 2 pillows rare PND rare nocturnal cough and no edema. He admits to snoring restless sleep unrestful sleep and daytime somnolence." I inherited his care Tuesday and he feels well and wants to go home; his ppd on the left ant forearm placed tuesday morning is negative so far. he denies further hemoptysis, fevers/chills and is not requiring supplemental O2. he reiterates that he has a job interview in the morning and would like to go home. ROS: all systems reviewed, see above, remaining systems negative Physical Exam Vital Signs: Temp Pulse Resp BP Pulse Ox 98.2 F 115 H 18 119/72 96 05/17/17 07:34 05/17/17 08:50 05/17/17 08:50 05/17/17 07:34 05/17/17 08:50 Intake & Output 05/16/17 05/17/17 05/18/17 06:59 06:59 06:59 Intake Total 548 1140 Output Total 400 1850 Balance 148 -710 Weight 75.6 kg 75.6 kg General appearance: PRESENT: no acute distress, well-developed, well-nourished Head exam: PRESENT: atraumatic, normocephalic Eye exam: PRESENT: EOMI. ABSENT: conjunctival injection, scleral icterus Mouth exam: PRESENT: moist, neck supple Neck exam: PRESENT: full ROM. ABSENT: lymphadenopathy, tenderness, tracheal deviation Respiratory exam: PRESENT: clear to auscultation pinky, unlabored. ABSENT: accessory muscle use Cardiovascular exam: PRESENT: RRR. ABSENT: systolic murmur Pulses: PRESENT: normal radial pulses, normal dorsalis pedis pul Vascular exam: PRESENT: normal capillary refill GI/Abdominal exam: PRESENT: normal bowel sounds, soft. ABSENT: tenderness Extremities exam: ABSENT: calf tenderness, pedal edema Musculoskeletal exam: PRESENT: ambulatory, full ROM Neurological exam: PRESENT: alert, awake, oriented to person, oriented to place , oriented to time, oriented to situation Psychiatric exam: PRESENT: appropriate affect, normal mood Skin exam: PRESENT: dry, warm Results Laboratory Results: 05/17/17 05:26 05/17/17 05:26 05/17/17 05/17/17 05:26 05:26 WBC 8.8 RBC 3.99 L Hgb 12.2 L Hct 35.5 L MCV 89 MCH 30.5 MCHC 34.3 RDW 13.7 Plt Count 313 Seg Neutrophils % Not Reportable Lymphocytes % Not Reportable Monocytes % Not Reportable Eosinophils % Not Reportable Basophils % Not Reportable Absolute Neutrophils Not Reportable Absolute Lymphocytes Not Reportable Absolute Monocytes Not Reportable Absolute Eosinophils Not Reportable Absolute Basophils Not Reportable Sodium 138.2 Potassium 4.4 Chloride 101 Carbon Dioxide 27 Anion Gap 10 BUN 21 H Creatinine 0.75 Est GFR ( Amer) > 60 Est GFR (Non-Af Amer) > 60 Glucose 68 L Calcium 9.5 Magnesium 2.1 Impressions: Chest X-Ray 05/15/17 11:50 IMPRESSION: SLIGHT WORSENING MULTIFOCAL AIRSPACE DISEASE. Status: Image reviewed by me - agree with rads Assessment & Plan - Diagnosis (1) Acute blood loss anemia Is this a current diagnosis for this admission?: Yes (2) Hemoptysis Is this a current diagnosis for this admission?: Yes (3) Pneumonia Qualifiers: Pneumonia type: due to unspecified organism Laterality: bilateral Lung location: unspecified part of lung Qualified Code(s): J18.9 - Pneumonia, unspecified organism Is this a current diagnosis for this admission?: Yes - Time Time Spent with patient: 25-34 minutes Anticipated discharge: Home Within: within 24 hours - Plan Summary Plan Summary: initial AFB is negative, if ppd remains negative by morning can likely d/c home on continued course of levaquin another 10d.
[2017-05-17 13:38] LABS: JO-1 ANTIBODY (ANACOMP) <0.2 AI (0.0-0.9)
[2017-05-17] MEDS: LEVOFLOXACIN 750 MG/D5W RTU 750 MG/150 ML RTUPB IV SCH (13:41)
[2017-05-17 17:37] LABS: CYTOPLASMIC (C-ANCA) <1:20 titer (Neg:<1:20)
--- NOTE | 2017-05-18 09:42 | RADIOLOGY REPORT (SQ) ---
EXAM DESCRIPTION: CHEST PA/LAT COMPLETED DATE/TIME: 05/18/2017 9:31 am REASON FOR STUDY: pneumonia COMPARISON: 05/15/2017. EXAM PARAMETERS: NUMBER OF VIEWS: two views TECHNIQUE: Digital Frontal and Lateral radiographic views of the chest acquired. RADIATION DOSE: NA LIMITATIONS: none FINDINGS: LUNGS AND PLEURA: Improvement in the bilateral pulmonary infiltrates. Mild residual densi ty in the right lung. MEDIASTINUM AND HILAR STRUCTURES: No masses or contour abnormalities. HEART AND VASCULAR STRUCTURES: Heart normal size. No evidence for failure. BONES: No acute findings. HARDWARE: None in the chest. OTHER: No other significant finding. IMPRESSION: OVERALL IMPROVEMENT IN THE PULMONARY INFILTRATES. THERE IS MILD RESIDUAL DENSITY IN THE RIGHT LUNG. TECHNICAL DOCUMENTATION: JOB ID: [id number] [employer]- All Rights Reserved
[2017-05-18 10:04] VITALS: BP 113/66
--- NOTE | 2017-05-18 11:06 | PDOC PROGRESS REPORT ---
Subjective Progress Note for:: 05/16/17 Subjective:: Feeling a little better Physical Exam Vital Signs: Temp Pulse Resp BP Pulse Ox 98.0 F 89 16 113/66 99 05/18/17 09:55 05/18/17 09:55 05/18/17 09:55 05/18/17 09:55 05/18/17 09:55 Intake & Output 05/17/17 05/18/17 05/19/17 06:59 06:59 06:59 Intake Total 1140 1552 Output Total 1850 1300 Balance -710 252 Weight 75.6 kg 75.8 kg General appearance: PRESENT: no acute distress, cooperative, disheveled, well- developed, well-nourished Head exam: PRESENT: atraumatic, normocephalic Eye exam: PRESENT: conjunctiva pale, EOMI Mouth exam: PRESENT: dry mucosa, neck supple, tongue midline Respiratory exam: PRESENT: decreased breath sounds, rhonchi, unlabored, wheezes Cardiovascular exam: PRESENT: RRR, +S1, +S2 Pulses: PRESENT: normal radial pulses GI/Abdominal exam: PRESENT: normal bowel sounds, soft. ABSENT: distended, guarding, mass, organolmegaly, rebound, tenderness Rectal exam: PRESENT: deferred Musculoskeletal exam: PRESENT: normal inspection Neurological exam: PRESENT: alert, awake Psychiatric exam: PRESENT: normal mood Skin exam: PRESENT: dry, warm Results Laboratory Results: 05/17/17 05:26 05/17/17 05:26 Impressions: Chest X-Ray 05/18/17 00:00 IMPRESSION: OVERALL IMPROVEMENT IN THE PULMONARY INFILTRATES. THERE IS MILD RESIDUAL DENSITY IN THE RIGHT LUNG. Assessment & Plan - Diagnosis (1) Acute blood loss anemia Is this a current diagnosis for this admission?: Yes (2) Bilateral pulmonary infiltrates on chest x-ray Is this a current diagnosis for this admission?: Yes (3) Hemoptysis Is this a current diagnosis for this admission?: YesPlan: PPD pending no additional hemoptysis (4) Melena Is this a current diagnosis for this admission?: Yes
--- NOTE | 2017-05-18 11:08 | PDOC PROGRESS REPORT ---
Subjective Progress Note for:: 05/18/17 Subjective:: Feeling a little better Physical Exam Vital Signs: Temp Pulse Resp BP Pulse Ox 98.0 F 89 16 113/66 99 05/18/17 09:55 05/18/17 09:55 05/18/17 09:55 05/18/17 09:55 05/18/17 09:55 Intake & Output 05/17/17 05/18/17 05/19/17 06:59 06:59 06:59 Intake Total 1140 1552 Output Total 1850 1300 Balance -710 252 Weight 75.6 kg 75.8 kg General appearance: PRESENT: no acute distress, cooperative, well-developed, well-nourished Head exam: PRESENT: atraumatic, normocephalic Eye exam: PRESENT: conjunctiva pale, EOMI Mouth exam: PRESENT: dry mucosa, neck supple Neck exam: ABSENT: carotid bruit, JVD, lymphadenopathy, thyromegaly Respiratory exam: PRESENT: decreased breath sounds, rhonchi, symmetrical, unlabored Cardiovascular exam: PRESENT: RRR, +S1, +S2 Pulses: PRESENT: normal radial pulses GI/Abdominal exam: PRESENT: normal bowel sounds, soft. ABSENT: distended, guarding, mass, organolmegaly, rebound, tenderness Rectal exam: PRESENT: deferred Musculoskeletal exam: PRESENT: normal inspection Neurological exam: PRESENT: alert, awake Psychiatric exam: PRESENT: normal mood Skin exam: PRESENT: dry, warm Results Laboratory Results: 05/17/17 05:26 05/17/17 05:26 Impressions: Chest X-Ray 05/18/17 00:00 IMPRESSION: OVERALL IMPROVEMENT IN THE PULMONARY INFILTRATES. THERE IS MILD RESIDUAL DENSITY IN THE RIGHT LUNG. Assessment & Plan - Diagnosis (1) Acute blood loss anemia Is this a current diagnosis for this admission?: Yes (2) Bilateral pulmonary infiltrates on chest x-ray Is this a current diagnosis for this admission?: Yes (3) Hemoptysis Is this a current diagnosis for this admission?: YesPlan: PPD interpret is negative no additional hemoptysis (4) Melena Is this a current diagnosis for this admission?: Yes
--- NOTE | 2017-05-18 16:47 | PDOC DISCHARGE SUMMARY ---
General - Admit/Disc Date/PCP Admission Date/Primary Care Provider: 05/15/17 15:23 Discharge Date: 05/18/17 - Discharge Diagnosis (1) Pneumonia Is this a current diagnosis for this admission?: YesSummary: continue oral abx at home, confirmed with james that biaxin most reasonable choice at about $100, he has seemingly failed doxycycline prior to his admission and levaquin is simply too expensive for him to afford. He states he has no money at present but will borrow from his parents. I instructed him to finish the doxycycline rather than take nothing at all but prefer he get the Biaxin if at all possible. he states understanding and willingness to comply. case d/w'd dr delgadillo prior to d/c and agrees with treatment plan, wants to see him in f/u in 2 wks. cxr performed prior to d/c to establish baseline for future reference. (2) Hemoptysis Is this a current diagnosis for this admission?: YesSummary: resolved and likely related to bronchiolar hemorrhage from forceful cough; ppd on arm is negative and he had at least one sputum neg for AFB without risk factors. (3) Acute blood loss anemia Is this a current diagnosis for this admission?: YesSummary: 2/2 above complicated by decreased oral intake due to acute illness; stable without further evidence of bleeding. - Additional Information Resuscitation Status: Full Code Discharge Diet: As Tolerated Discharge Activity: Activity As Tolerated Home Medications: Acetaminophen [Tylenol 325 mg Tablet] 650 mg PO Q4HP PRN tablet 05/18/17 Clarithromycin 500 mg PO BID #20 tablet 05/18/17 History of Present Illness Patient complains of: cough with bloody sputum History of Present Illness: BRYAN VIDAL is a 22 year old male with no significant past medical history who presents to the service with complaints of coughing up blood. Hospital Course Hospital Course: The patient initially presented here back on May 11. At that time he complained of myalgias, fevers, headache. He presented to the ED he was noted to have an elevated heart rate. Chest x-ray was done which was normal. He was discharged home. Patient returned on May 13 with complaints of shortness of breath especially when walking. CTA of the chest abdomen was negative for PE but showed infiltrate versus hemorrhage or pulmonary edema. The patient was placed on steroids, doxycycline and inhalers. At that time it was noted that his hemoglobin which was 15 on his initial visit had now dropped down to 12. The patient was invited to stay in the hospital however, he respectfully declined citing that he had a job interview coming up and he wanted to be present for that. On May 15 the patient will be presented with continued hemoptysis. This time in the ED it was noted that his hemoglobin had dropped down to 11. Flu and HIV screens from previous ER visit came back negative. In my conversation with the patient, he states that he has been coughing up blood over the last several days. He states that he coughed up maybe about 6 tablespoons. He describes it as bright red blood and at other times the blood appears to be old. He admits to black tarry stools starting yesterday. He admits to fevers, chills, chest discomfort with deep breathing and dyspnea on exertion. He denies any nausea vomiting, diarrhea constipation, blood in the urine, throwing up blood, cold or heat intolerance. He does occasionally have dizzy spells since all of this began. 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 He says there are few sick people at work. He also admits to having diffuse myalgia and arthralgias when this first began. However, this is dissipated. He has had no recent travel outside the country and does not live in the community setting such as fpc, dormitory, care home. Other than presenting to the emergency room to 3 days prior to admission complains of cough and shortness of breath was felt that the times that he had a viral pneumonia no antibiotics or other medications were issued. He returned several days later planing cough increasing shortness of breath cough was productive of blood he also states he has some fevers and chills no nausea vomiting no diarrhea but he had several bowel movements that were black and tarry. He denies shortness of breath at rest but admits to some dips and exertion that did not exist prior to these events. He denies history of chronic lung disease as a child or adolescent. He admits to exposure to passive smoke as a child as well as an adult. He denies ever having smoked. He denies recent incarceration. He denies knowledge of being around people who may have had TB in the recent past. He has no occupational exposure to potential respiratory toxins. He has no pets and he denies any recent travel other than to [place]. He admits to occasional tightness in his chest sleeps on 2 pillows rare PND rare nocturnal cough and no edema. He admits to snoring restless sleep unrestful sleep and daytime somnolence." I inherited his care Tuesday and he feels well and wants to go home; his ppd on the left ant forearm placed tuesday morning is negative so far. he denies further hemoptysis, fevers/chills and is not requiring supplemental O2. he reiterates that he has a job interview in the morning and would like to go home. he reports taking 4 doses over 2 days of the doxycycline but his condition actually worsened prompting his return to the ED. he was seen by dr delgadillo, ppd placed which is negative by my eye at 48hrs, ct scan reviewed with diffuse atypical appearance, sputum sent for AFB and is negative, sputum culture is also negative for a specific pathogen. he was treated with levaquin with gradual resolution of his cough and resultant hemoptysis and overaall improvement in his condition such that he is stable for d/c home at this time. he expresses no concerns to me about going home today. Physical Exam Vital Signs: Temp Pulse Resp BP Pulse Ox 98.0 F 89 16 113/66 99 05/18/17 09:55 05/18/17 09:55 05/18/17 09:55 05/18/17 09:55 05/18/17 09:55 Intake & Output 05/17/17 05/18/17 05/19/17 06:59 06:59 06:59 Intake Total 1140 1552 Output Total 1850 1300 Balance -710 252 Weight 75.6 kg 75.8 kg General appearance: PRESENT: no acute distress, well-developed, well-nourished Head exam: PRESENT: atraumatic, normocephalic Eye exam: PRESENT: EOMI Mouth exam: PRESENT: moist Respiratory exam: PRESENT: clear to auscultation pinky, unlabored Neurological exam: PRESENT: alert, awake, oriented to person, oriented to place Results Laboratory Results: 05/17/17 05:26 05/17/17 05:26 Impressions: Chest X-Ray 05/18/17 00:00 IMPRESSION: OVERALL IMPROVEMENT IN THE PULMONARY INFILTRATES. THERE IS MILD RESIDUAL DENSITY IN THE RIGHT LUNG. Qualifiers PATEINT BEING DISCHARGED WITH ANY OF THE FOLLOWING DIAGNOSIS?: No VTE patient discharged on overlapping Therapy?: No Reason(s) for not prescribing Overlap Therapy:: Not indicated Plan Discharge Plan: finish a 10d course of Biaxin, anna delgadillo in 2 wks, return to the ED for worsening condition. Time Spent: Greater than 30 Minutes
== END 2017-05-18 10:45 | disposition home or self-care (01) | DRG 194 ==
LOC: ER 10:58 → EH 15:01 → UNDOADMIN 15:01 → EH 15:23 → 4S 15:44 → EH 15:44
PROVIDERS: ADMIT Internal Medicine; ATTEND Internal Medicine
PROC: 3E0F73Z Introduction of Anti-inflammatory into Respiratory Tract, Via Natural or Artificial Opening (ICD-10-PCS; principal; 2017-05-16)
PROC: 3E0234Z Introduction of Serum, Toxoid and Vaccine into Muscle, Percutaneous Approach (ICD-10-PCS; 2017-05-16)
DX: J18.9 Pneumonia, unspecified organism (principal); D62 Acute posthemorrhagic anemia; K92.1 Melena; R04.89 Hemorrhage from other sites in respiratory passages; F32.9 Major depressive disorder, single episode, unspecified; F41.9 Anxiety disorder, unspecified; Z79.899 Other long term (current) drug therapy; Z82.49 Family history of ischemic heart disease and other diseases of the circulatory system; Z23 Encounter for immunization
CPT/HCPCS: 36415; 71020; 80048; 80053; 80307; 81001; 83735; 85025; 85610; 85730; 86021; 86225; 86235; 87015; 87040; 87070; 87116; 87205; 87206; 94640; 99285; J1956; J3490; J7620